=== PATIENT | male | born 1945 | race Caucasian/White ===

== ENCOUNTER 2016-11-10 07:18 | Inpatient (IN) | payer MEDICARE, OTHER ==
[~2016-11-10] VITALS: Ht 180.3 cm; Wt 90.6 kg
[2016-11-10] MEDS ORDERED: HYDROcodone/APAP 5/325 TABLET ONE ×2 (08:14→13:38)
[2016-11-10] MEDS: HYDROcodone/APAP 5/325 TABLET PO PRN ×3 (08:18→17:53)
[2016-11-10 08:33] LABS: HEMATOCRIT 39.8 % (39.2-51.8); HEMOGLOBIN 13.3 g/dL (13.7-18.0); WHITE BLOOD COUNT 6.4 x10^3/uL (3.4-10)
[2016-11-10 08:40] LABS: BLOOD UREA NITROGEN 12 mg/dL (7-18)
[2016-11-10] MEDS ORDERED: CLINDAMYCIN PMX 600MG/50ML 50 ML IV ONE (10:00)
[2016-11-10] MEDS ORDERED: CLINDAMYCIN PMX 600MG/50ML 50 ML ONE (10:13)
[2016-11-10] MEDS ORDERED: ONDANSETRON ODT 4 MG PO PRN (12:00)
[2016-11-10] MEDS ORDERED: ONDANSETRON 2MG/ML, 2ML IVPush PRN (12:00)
[2016-11-10] MEDS ORDERED: POLYETHYLENE GLYCOL 17 GM PACKET PO PRN (12:00)
[2016-11-10] MEDS ORDERED: morphine SULFATE 10 MG/ML, 1ML IVPush PRN (12:00)
[2016-11-10] MEDS: LACTOBACILLUS CHEW TABLET PO SCH ×3 (12:00→21:01)
[2016-11-10] MEDS ORDERED: DOCUSATE 100 MG CAPSULE PO PRN (12:00)
[2016-11-10] MEDS ORDERED: FUROSEMIDE 20 MG/2 ML IV ONE (12:00)
[2016-11-10] MEDS: GABAPENTIN 100 MG CAPSULE PO SCH ×3 (12:00→21:01)
[2016-11-10] MEDS ORDERED: BISACODYL 10 MG SUPP PR PRN (12:00)
[2016-11-10] MEDS ORDERED: FUROSEMIDE 20 MG/2 ML ONE (12:21)
[2016-11-10] MEDS ORDERED: ENOXAPARIN 40 MG/0.4 ML ONE (12:21)
[2016-11-10] MEDS: ENOXAPARIN 40 MG/0.4 ML SQ SCH (12:26)
[2016-11-10] MEDS: CLINDAMYCIN PMX 900MG/50ML 50 ML IV SCH ×2 (12:29→21:01)
[2016-11-10 12:42] LABS: C-REACTIVE PROTEIN, QUANT 0.52 mg/dL (0.02-0.49)
[2016-11-10] MEDS: INSULIN ASPART 100 UNITS/ML, PEN SQ-INSULIN SCH ×3 (13:36→21:00)
[2016-11-10 20:12] VITALS: BP 110/63
[2016-11-11 04:11] VITALS: BP 129/68
[2016-11-11] MEDS: LACTOBACILLUS CHEW TABLET PO SCH ×4 (05:17→20:11)
[2016-11-11] MEDS: CLINDAMYCIN PMX 900MG/50ML 50 ML IV SCH ×3 (05:17→22:58)
[2016-11-11 05:30] LABS: HEMOGLOBIN 12.6 g/dL (13.7-18.0); WHITE BLOOD COUNT 5.2 x10^3/uL (3.4-10)
[2016-11-11 05:48] LABS: ASPARTATE AMINO TRANSFERASE 12 U/L (15-37); BLOOD UREA NITROGEN 13 mg/dL (7-18)
[2016-11-11] MEDS: INSULIN ASPART 100 UNITS/ML, PEN SQ-INSULIN SCH ×4 (07:00→20:16)
[2016-11-11] MEDS ORDERED: PNEUMOCOCCAL 23 VACCINE IM-VACC ONE (07:30)
[2016-11-11 08:18] VITALS: BP 124/76
[2016-11-11] MEDS: HYDROcodone/APAP 5/325 TABLET PO PRN ×2 (09:39→15:40)
[2016-11-11] MEDS: GABAPENTIN 100 MG CAPSULE PO SCH ×3 (09:39→20:11)
[2016-11-11 12:41] VITALS: BP 130/83
[2016-11-11] MEDS: ENOXAPARIN 40 MG/0.4 ML SQ SCH (15:37)
[2016-11-11 19:04] VITALS: BP 110/60
[2016-11-12 03:00] VITALS: BP 109/67
[2016-11-12] MEDS: LACTOBACILLUS CHEW TABLET PO SCH ×4 (06:43→22:01)
[2016-11-12] MEDS: INSULIN ASPART 100 UNITS/ML, PEN SQ-INSULIN SCH ×4 (07:00→21:00)
[2016-11-12] MEDS: CLINDAMYCIN PMX 900MG/50ML 50 ML IV SCH (08:05)
[2016-11-12] MEDS: GABAPENTIN 100 MG CAPSULE PO SCH ×3 (08:05→22:01)
[2016-11-12] MEDS: CLINDAMYCIN 300 MG CAPSULE PO SCH ×3 (09:08→22:01)
[2016-11-12 09:17] VITALS: BP 142/80
[2016-11-12 14:01] VITALS: BP 131/73
[2016-11-12] MEDS: ENOXAPARIN 40 MG/0.4 ML SQ SCH (15:47)
[2016-11-12] MEDS: HYDROcodone/APAP 5/325 TABLET PO PRN (18:10)
[2016-11-12 20:20] VITALS: BP 149/82
[2016-11-13 02:06] VITALS: BP 146/72
[2016-11-13] MEDS: CLINDAMYCIN 300 MG CAPSULE PO SCH ×4 (04:17→22:47)
[2016-11-13] MEDS: LACTOBACILLUS CHEW TABLET PO SCH ×4 (04:17→22:47)
[2016-11-13] MEDS: INSULIN ASPART 100 UNITS/ML, PEN SQ-INSULIN SCH ×4 (07:00→21:00)
[2016-11-13 07:50] VITALS: BP 146/82
[2016-11-13] MEDS: GABAPENTIN 100 MG CAPSULE PO SCH ×3 (10:15→22:47)
[2016-11-13] MEDS: HYDROcodone/APAP 5/325 TABLET PO PRN ×2 (11:07→18:40)
[2016-11-13 12:45] VITALS: BP 128/74
[2016-11-13] MEDS ORDERED: CLIN300C8 PO (16:07)
[2016-11-13] MEDS ORDERED: HYDR-3240 PO (16:07)
[2016-11-13] MEDS: ENOXAPARIN 40 MG/0.4 ML SQ SCH (16:14)
[2016-11-13 19:35] VITALS: BP 112/66
[2016-11-14 01:12] VITALS: BP 147/80
[2016-11-14] MEDS: LACTOBACILLUS CHEW TABLET PO SCH ×4 (05:17→20:47)
[2016-11-14] MEDS: CLINDAMYCIN 300 MG CAPSULE PO SCH ×4 (05:18→22:46)
[2016-11-14] MEDS: INSULIN ASPART 100 UNITS/ML, PEN SQ-INSULIN SCH ×4 (07:00→20:48)
[2016-11-14 07:49] VITALS: BP 128/80
[2016-11-14] MEDS: GABAPENTIN 100 MG CAPSULE PO SCH ×3 (09:45→20:47)
[2016-11-14 13:58] VITALS: BP 129/72
[2016-11-14] MEDS: ENOXAPARIN 40 MG/0.4 ML SQ SCH (14:50)
[2016-11-14] MEDS: HYDROcodone/APAP 5/325 TABLET PO PRN (14:50)
[2016-11-14 15:51] VITALS: BP 123/76
[2016-11-14 19:31] VITALS: BP 122/69
[2016-11-15 01:18] VITALS: BP 122/72
[2016-11-15] MEDS: LACTOBACILLUS CHEW TABLET PO SCH ×4 (05:34→22:23)
[2016-11-15] MEDS: CLINDAMYCIN 300 MG CAPSULE PO SCH ×4 (05:34→22:23)
[2016-11-15] MEDS: INSULIN ASPART 100 UNITS/ML, PEN SQ-INSULIN SCH ×3 (07:00→16:00)
[2016-11-15 08:19] VITALS: BP 147/80
[2016-11-15] MEDS: HYDROcodone/APAP 5/325 TABLET PO PRN ×3 (08:30→22:23)
[2016-11-15] MEDS: GABAPENTIN 100 MG CAPSULE PO SCH ×3 (08:30→22:23)
[2016-11-15 13:10] VITALS: BP 136/73
[2016-11-15] MEDS: ENOXAPARIN 40 MG/0.4 ML SQ SCH (15:09)
[2016-11-15 19:35] VITALS: BP 110/68
[2016-11-16 01:02] VITALS: BP 125/76
[2016-11-16] MEDS: LACTOBACILLUS CHEW TABLET PO SCH ×3 (05:20→15:34)
[2016-11-16] MEDS: CLINDAMYCIN 300 MG CAPSULE PO SCH ×3 (05:20→16:15)
[2016-11-16 09:14] VITALS: BP 127/73
[2016-11-16] MEDS: GABAPENTIN 100 MG CAPSULE PO SCH ×2 (09:27→15:34)
[2016-11-16] MEDS: HYDROcodone/APAP 5/325 TABLET PO PRN ×2 (09:28→15:34)
[2016-11-16 12:52] VITALS: BP 120/71
[2016-11-16] MEDS: ENOXAPARIN 40 MG/0.4 ML SQ SCH (15:00)
== END 2016-11-16 16:31 | disposition home or self-care (01) | DRG 602 ==
LOC: ED 10:10 → EDIP 10:11 → ED 10:14 → 3NE 15:58
PROVIDERS: ADMIT Internal Medicine; ATTEND Family Medicine
DX: L03.115 Cellulitis of right lower limb (principal); R53.2 Functional quadriplegia; E44.0 Moderate protein-calorie malnutrition; K74.60 Unspecified cirrhosis of liver; L03.116 Cellulitis of left lower limb; Z68.27 Body mass index [BMI] 27.0-27.9, adult; D64.9 Anemia, unspecified; G62.9 Polyneuropathy, unspecified; G89.29 Other chronic pain; R29.6 Repeated falls; Z59.0 Homelessness; Z81.1 Family history of alcohol abuse and dependence; Z83.3 Family history of diabetes mellitus; Z99.3 Dependence on wheelchair
CPT/HCPCS: 36415; 70450; 76700; 80048; 80053; 82040; 82140; 82607; 82962; 83036; 83880; 84443; 85025; 85651; 86140; 90732; 93922; 93970; 96365; 96375; J1650; J1815; J1940

== ENCOUNTER 2017-09-03 11:51 | Inpatient (IN) | payer MEDICARE, OTHER ==
[~2017-09-03] VITALS: Ht 180.3 cm; Wt 92.0 kg
[~2017-09-03 11:51] MED LIST: CLIN300C8 PO; HYDR-3240 PO
[2017-09-03] MEDS ORDERED: SODIUM CHLORIDE FLUSH 10ML SYR IVF ONE (14:00)
[2017-09-03] MEDS ORDERED: MORPHINE SULFATE 4 MG/ML, 1ML ONE (14:08)
[2017-09-03] MEDS: MORPHINE SULFATE 4 MG/ML, 1ML IVPush PRN ×2 (14:16→17:37)
[2017-09-03 14:20] LABS: BASOPHILS # (AUTO) 0.04 x10^3/uL (0-0.1); BASOPHILS % (AUTO) 1 % (0-1); EOSINOPHILS % (AUTO) 0 % (1-7); LYMPHOCYTES # (AUTO) 1.71 x10^3/uL (1-3.4); LYMPHOCYTES % (AUTO) 21 % (22-44); MD NO; MEAN CORPUSCULAR HGB CONC 33.9 g/dL (33.2-36.2); MEAN CORPUSCULAR VOLUME 100.3 fL (81-97); MEAN PLATELET VOLUME 7.2 fL (7.4-10.4); MONOCYTES # (AUTO) 0.16 x10^3/uL (0.2-0.8); MONOCYTES % (AUTO) 2 % (2-9); NEUTROPHILS % (AUTO) 76 % (42-75); PLATELET COUNT 300 x10^3/uL (130-400); RED BLOOD COUNT 4.14 x10^6/uL (4.38-5.82); RED CELL DISTRIBUTION WIDTH 15.1 % (9.4-14.8)
[2017-09-03 14:26] LABS: INTERNATIONAL NORMALIZED RATIO 0.97 (0.93-1.1)
[2017-09-03 14:31] LABS: ALBUMIN 3.6 g/dL (3.4-5.0); ANION GAP 9 mmol/L (5-15); CALCIUM 7.8 mg/dL (8.5-10.1); CHLORIDE 107 mmol/L (98-107)
[2017-09-03 14:38] LABS: ALANINE AMINOTRANSFERASE 21 U/L (12-78); ALKALINE PHOSPHATASE 90 U/L (45-117); BILIRUBIN,TOTAL 0.5 mg/dL (0.2-1.0); CREATININE 0.88 mg/dL (0.7-1.3); TOTAL PROTEIN 7.8 g/dL (6.4-8.2)
[2017-09-03] MEDS ORDERED: SODIUM CHLORIDE 0.9% 1,000 ML IV ONE (14:59)
[2017-09-03] MEDS ORDERED: SODIUM CHLORIDE FLUSH 10ML SYR IVF PRN (15:00)
[2017-09-03] MEDS ORDERED: LORazepam 0.5MG TABLET PO PRN (16:00)
[2017-09-03] MEDS ORDERED: LORazepam 2 MG/ML, 1ML IV PRN ×3 (16:00)
[2017-09-03] MEDS ORDERED: LORazepam 1MG TABLET PO PRN ×2 (16:00)
[2017-09-03 16:46] VITALS: BP 134/76
[2017-09-03] MEDS: POTASSIUM CHLORIDE 20 MEQ, MAGNESIUM SULFATE 1 GM, THIAMINE 200 MG, FOLIC ACID 1 MG, MV... IV SCH (17:37)
[2017-09-03 20:00] VITALS: BP 140/75
[2017-09-03] MEDS: morphine SULFATE 10 MG/ML, 1ML IVPush PRN (22:28)
[2017-09-04] MEDS: morphine SULFATE 10 MG/ML, 1ML IVPush PRN ×4 (01:18→11:23)
[2017-09-04 01:33] VITALS: BP 134/73
[2017-09-04 04:54] LABS: MICROSCOPIC NOT IND
[2017-09-04 05:07] LABS: BASOPHILS # (AUTO) 0.03 x10^3/uL (0-0.1); BASOPHILS % (AUTO) 0 % (0-1); EOSINOPHILS % (AUTO) 0 % (1-7); LYMPHOCYTES # (AUTO) 1.51 x10^3/uL (1-3.4); LYMPHOCYTES % (AUTO) 18 % (22-44); MD NO; MEAN CORPUSCULAR HEMOGLOBIN 34.1 pg (27.5-34.5); MEAN CORPUSCULAR HGB CONC 33.7 g/dL (33.2-36.2); MEAN CORPUSCULAR VOLUME 101.2 fL (81-97); MEAN PLATELET VOLUME 7.5 fL (7.4-10.4); MONOCYTES # (AUTO) 0.85 x10^3/uL (0.2-0.8); MONOCYTES % (AUTO) 10 % (2-9); NEUTROPHILS # (AUTO) 5.86 x10^3/uL (1.8-6.8); NEUTROPHILS % (AUTO) 71 % (42-75); PLATELET COUNT 253 x10^3/uL (130-400); RED BLOOD COUNT 3.69 x10^6/uL (4.38-5.82); RED CELL DISTRIBUTION WIDTH 15.5 % (9.4-14.8)
[2017-09-04 05:10] LABS: CULTURE INDICATED? NO
[2017-09-04 05:13] LABS: AMPHETAMINE SCREEN, URINE Negative (Negative); BARBITURATE SCREEN, URINE Negative (Negative); BENZODIAZEPINE SCREEN, URINE Negative (Negative); CANNABINOID SCREEN, URINE Negative (Negative); COCAINE SCREEN, URINE Negative (Negative); METHADONE SCREEN, URINE Negative (Negative); OPIATE SCREEN, URINE Positive (Negative)
[2017-09-04 05:18] LABS: CHLORIDE 108 mmol/L (98-107)
[2017-09-04 06:05] LABS: ALANINE AMINOTRANSFERASE 20 U/L (12-78); ALBUMIN 3.2 g/dL (3.4-5.0); ALKALINE PHOSPHATASE 88 U/L (45-117); ANION GAP 15 mmol/L (5-15); BILIRUBIN,TOTAL 0.8 mg/dL (0.2-1.0); CALCIUM 7.9 mg/dL (8.5-10.1); CREATININE 0.71 mg/dL (0.7-1.3); TOTAL PROTEIN 7.2 g/dL (6.4-8.2)
[2017-09-04 06:40] VITALS: BP 150/77
[2017-09-04] MEDS: LORazepam 2 MG/ML, 1ML IV PRN ×2 (09:31→13:36)
[2017-09-04 14:01] VITALS: BP 142/81
[2017-09-04] MEDS ORDERED: ACETAMINOPHEN 500 MG TABLET PO ONE (15:30)
[2017-09-04] MEDS ORDERED: OXYcodone IR 5MG TABLET PO ONE (15:30)
[2017-09-04] MEDS ORDERED: ONDANSETRON ODT 8 MG PO ONE (15:30)
[2017-09-04] MEDS ORDERED: GABAPENTIN 300 MG CAPSULE PO ONE (15:30)
[2017-09-04] MEDS ORDERED: FAMOTIDINE 20 MG TABLET PO ONE (15:30)
[2017-09-04] MEDS ORDERED: DEXAMETHASONE 4 MG/ML, 1ML ONE (16:17)
[2017-09-04] MEDS ORDERED: CEFAZOLIN 1,000 MG ONE (16:17)
[2017-09-04] MEDS ORDERED: PROPOFOL 10 MG/ML, 20ML ONE (16:17)
[2017-09-04] MEDS ORDERED: MIDAZOLAM 1 MG/ML, 2ML ONE (16:20)
[2017-09-04] MEDS ORDERED: FENTANYL PF 100 MCG/2ML ONE ×2 (16:21→17:57)
[2017-09-04] MEDS ORDERED: HYDROmorphone 1 MG/ML, 1ML IV PRN (17:00)
[2017-09-04] MEDS ORDERED: hydrALAzine 20 MG/ML, 1ML IV PRN (17:00)
[2017-09-04] MEDS ORDERED: EPHEDRINE 50 MG/ML, 1ML IVPush PRN (17:00)
[2017-09-04] MEDS ORDERED: PROMETHAZINE 25 MG/ML, 1ML IV PRN (17:00)
[2017-09-04] MEDS ORDERED: ALBUTEROL SULFATE 2.5 MG/3 ML NPPB PRN (17:00)
[2017-09-04] MEDS ORDERED: FENTANYL PF 100 MCG/2ML IV PRN (17:00)
[2017-09-04] MEDS ORDERED: MIDAZOLAM 1 MG/ML, 2ML IV PRN (17:00)
[2017-09-04] MEDS ORDERED: ONDANSETRON ODT 8 MG PO PRN (17:00)
[2017-09-04] MEDS ORDERED: LABETALOL 5MG/ML, 20ML IV PRN (17:00)
[2017-09-04] MEDS ORDERED: OXYcodone 5 MG/5 ML ORAL.SOL UDC PO PRN (17:00)
[2017-09-04] MEDS ORDERED: HYDROcodone/APAP 7.5-325MG/15ML UDC PO PRN (17:00)
[2017-09-04] MEDS ORDERED: MEPERIDINE/PF 25MG/0.5ML IVPush PRN (17:00)
[2017-09-04] MEDS ORDERED: LABETALOL 5MG/ML, 20ML ONE (17:39)
[2017-09-04 19:30] VITALS: BP 106/77
[2017-09-04] MEDS: ENOXAPARIN 40 MG/0.4 ML SQ SCH (19:47)
[2017-09-04] MEDS: POTASSIUM CHLORIDE 20 MEQ, MAGNESIUM SULFATE 1 GM, THIAMINE 200 MG, FOLIC ACID 1 MG, MV... IV SCH (19:48)
[2017-09-04] MEDS: BEER 12 OZ CAN PO SCH (21:00)
[2017-09-05] MEDS: morphine SULFATE 10 MG/ML, 1ML IVPush PRN ×3 (00:53→12:50)
[2017-09-05] MEDS: BEER 12 OZ CAN PO SCH ×2 (00:53→09:31)
[2017-09-05 02:21] VITALS: BP 109/69
[2017-09-05] MEDS: CEFAZOLIN PMX 1GM/50ML 50 ML IV SCH ×3 (02:44→18:01)
[2017-09-05 06:42] VITALS: BP 146/74
[2017-09-05 06:48] LABS: THYROID STIMULATING HORMONE 0.356 mIU/L (0.358-3.740)
[2017-09-05 06:53] LABS: FOLATE LEVEL > 20.0 ng/mL (3.1-17.5)
[2017-09-05 13:25] VITALS: BP 125/66
[2017-09-05] MEDS: OXYcodone IR 5MG TABLET PO PRN (18:02)
[2017-09-05 18:44] VITALS: BP 127/76
[2017-09-05] MEDS: POTASSIUM CHLORIDE 20 MEQ, MAGNESIUM SULFATE 1 GM, THIAMINE 200 MG, FOLIC ACID 1 MG, MV... IV SCH (20:37)
[2017-09-05] MEDS: ENOXAPARIN 40 MG/0.4 ML SQ SCH (20:37)
[2017-09-06 01:47] VITALS: BP 115/57
[2017-09-06] MEDS: morphine SULFATE 10 MG/ML, 1ML IVPush PRN (02:38)
[2017-09-06] MEDS: LORazepam 1MG TABLET PO PRN ×2 (02:38→06:35)
[2017-09-06] MEDS: OXYcodone IR 5MG TABLET PO PRN (04:51)
[2017-09-06 05:17] LABS: BASOPHILS # (AUTO) 0.02 x10^3/uL (0-0.1); BASOPHILS % (AUTO) 0 % (0-1); EOSINOPHILS # (AUTO) 0.01 x10^3/uL (0-0.4); EOSINOPHILS % (AUTO) 0 % (1-7); LYMPHOCYTES # (AUTO) 1.67 x10^3/uL (1-3.4); LYMPHOCYTES % (AUTO) 20 % (22-44); MD NO; MEAN CORPUSCULAR HEMOGLOBIN 34.2 pg (27.5-34.5); MEAN CORPUSCULAR VOLUME 100.8 fL (81-97); MEAN PLATELET VOLUME 7.9 fL (7.4-10.4); MONOCYTES # (AUTO) 0.74 x10^3/uL (0.2-0.8); MONOCYTES % (AUTO) 9 % (2-9); NEUTROPHILS # (AUTO) 6.07 x10^3/uL (1.8-6.8); NEUTROPHILS % (AUTO) 71 % (42-75); PLATELET COUNT 208 x10^3/uL (130-400); RED BLOOD COUNT 2.91 x10^6/uL (4.38-5.82); RED CELL DISTRIBUTION WIDTH 14.6 % (9.4-14.8)
[2017-09-06 05:18] LABS: CHLORIDE 105 mmol/L (98-107)
[2017-09-06 05:25] LABS: ANION GAP 8 mmol/L (5-15); CALCIUM 7.7 mg/dL (8.5-10.1); CREATININE 0.85 mg/dL (0.7-1.3)
[2017-09-06 06:32] VITALS: BP 145/78
[2017-09-06] MEDS ORDERED: KETOROLAC 30 MG/1 ML IVPush PRN (10:00)
[2017-09-06] MEDS ORDERED: THIA100T10 PO (10:11)
[2017-09-06] MEDS ORDERED: ACET-1757 PO (10:11)
[2017-09-06] MEDS ORDERED: FOLI-17 PO (10:11)
[2017-09-06] MEDS ORDERED: IBUP-1221 PO (10:11)
[2017-09-06] MEDS ORDERED: ENOX40SY4 SQ (10:11)
[2017-09-06 13:17] VITALS: BP 131/74
== END 2017-09-06 14:10 | DRG 480 ==
LOC: ED 14:36 → EDIP 14:59 → 4NOR 16:24
PROVIDERS: ADMIT Hospitalist; ATTEND Hospitalist
PROC: 0QS736Z Reposition Left Upper Femur with Intramedullary Internal Fixation Device, Percutaneous Approach (ICD-10-PCS; principal; 2017-09-04 16:00)
DX: S72.142A Displaced intertrochanteric fracture of left femur, initial encounter for closed fracture (principal); E43 Unspecified severe protein-calorie malnutrition; G93.40 Encephalopathy, unspecified; D53.9 Nutritional anemia, unspecified; Z68.28 Body mass index [BMI] 28.0-28.9, adult; F10.229 Alcohol dependence with intoxication, unspecified; F17.200 Nicotine dependence, unspecified, uncomplicated; G62.9 Polyneuropathy, unspecified; M51.36 Other intervertebral disc degeneration, lumbar region; Y90.8 Blood alcohol level of 240 mg/100 ml or more; Z59.0 Homelessness; Z99.3 Dependence on wheelchair; W05.0XXA Fall from non-moving wheelchair, initial encounter; Y93.89 Activity, other specified; Y92.89 Other specified places as the place of occurrence of the external cause; Y99.8 Other external cause status
CPT/HCPCS: 36415; 71045; 72100; 76000; 80048; 80053; 80307; 81003; 82607; 82746; 83735; 84100; 84443; 85025; 85610; 85730; 93005; 99285; C1713; J0690; J1100; J1650; J1885; J2250; J2704; J3010; J3411; J3475; J3480; Q0162; J2060; J2270; J7030

== ENCOUNTER 2017-12-05 18:03 | Emergency (ER) | payer MEDICARE, OTHER ==
[~2017-12-05] VITALS: Ht 182.9 cm; Wt 75.0 kg
[~2017-12-05 18:03] MED LIST changes: +ACET-1757 PO; +ENOX40SY4 SQ; +FOLI-17 PO; +IBUP-1221 PO; +THIA100T10 PO
[2017-12-05 18:23] VITALS: BP 148/81
== END 2017-12-05 21:17 | disposition home or self-care (01) ==
LOC: ED 20:10
DX: R21 Rash and other nonspecific skin eruption (principal); Z72.9 Problem related to lifestyle, unspecified
CPT/HCPCS: 99281; 99283; 99284

== ENCOUNTER 2018-07-02 17:11 | Emergency (ER) | payer SELFPAY ==
[~2018-07-02] VITALS: Ht 175.3 cm; Wt 91.0 kg
--- NOTE | 2018-07-02 17:36 | NUR ---
[facility]IB [facility]. +ETOH, TIPPED OVER IN WHEELCHAIR, NO LOC + PARTIAL THICKNESS 1CM LACERATION LEFT UPPER FOREHEAD. VITAL SIGNS POSTED REPORTED BY EMS. HEAD LAC CLEANED WITH SOAP AND WATER, PT TOLLERATED WELL. PULSE OX IN PLACE, PT VERBALIZES "I JUST WANT TO SLEEP". SIDE RAILS UP X 2 AND CALL LIGHT W/I REACH
[2018-07-02] MEDS ORDERED: DIPH,PERTUSS(ACELL),TET VAC/PF 0.5 ML IM-VACC ONE ×2 (18:00→18:19)
[2018-07-02] MEDS ORDERED: L.E.T SOLUTION TP ONE ×2 (18:00→18:19)
--- NOTE | 2018-07-02 18:39 | NUR ---
let applied. awaiting tx
--- NOTE | 2018-07-02 19:00 | NUR ---
CORTES (RN) IS ASSUMING CARE OF THIS PT AT THIS TIME. SBAR REPORT WAS EXCHANGED AT THE BEDSIDE.
--- NOTE | 2018-07-02 19:07 | NUR ---
PT GIVEN MEAL TRAY PER REQUEST.
--- NOTE | 2018-07-02 19:49 | NUR ---
DERMABOND PLACED TO ABRASION ON LEFT FOREHEAD
[2018-07-02 20:38] VITALS: BP 112/78
== END 2018-07-02 20:40 | disposition home or self-care (01) ==
LOC: ED 20:34
DX: S01.81XA Laceration without foreign body of other part of head, initial encounter (principal); F10.20 Alcohol dependence, uncomplicated; Z72.9 Problem related to lifestyle, unspecified; Z59.0 Homelessness; W01.0XXA Fall on same level from slipping, tripping and stumbling without subsequent striking against object, initial encounter; Y93.89 Activity, other specified; Y92.89 Other specified places as the place of occurrence of the external cause; Y99.8 Other external cause status; Y90.9 Presence of alcohol in blood, level not specified
CPT/HCPCS: 12011; 70450; 90471; 90715; 99284